=== PATIENT | male | born 1995 ===

== ENCOUNTER 2021-04-27 13:28 | Emergency (ER) | payer SELFPAY ==
[2021-04-27] MEDS ORDERED: Sodium Chloride 0.9% 1,000 ML IV ONE (14:04)
[2021-04-27] MEDS ORDERED: Sodium Chloride 0.9% 10 ML Syringe FLUSH PRN (14:04)
== END 2021-04-27 15:53 | disposition home or self-care (01) ==
LOC: JD.ED 13:28
DX: R50.9 Fever, unspecified (principal); Z20.822 Contact with and (suspected) exposure to COVID-19
CPT/HCPCS: 87635; 87651; 87804; 99283; J7030; U0002